=== PATIENT | male | born 1960 | race African-American/Black ===

== ENCOUNTER 2019-08-18 09:41 | Emergency (ER) | payer MEDICAID ==
[~2019-08-18] VITALS: Ht 175.3 cm; Wt 70.0 kg
[2019-08-18] MEDS ORDERED: KETOROLAC 60MG/2ML VIAL IM ONE (11:45)
[2019-08-18] MEDS ORDERED: TRAMADOL 50MG TABLET PO ONE (11:45)
[2019-08-18] MEDS ORDERED: CLONIDINE 0.2MG TABLET PO ONE (12:15)
[2019-08-18] MEDS ORDERED: HYDROCHLOROTHIAZIDE 25MG TABLET PO ONE (12:15)
[2019-08-18 14:35] VITALS: BP 147/111
== END 2019-08-18 14:47 | disposition home or self-care (01) ==
LOC: ER 09:41
DX: M54.12 Radiculopathy, cervical region (principal); M48.02 Spinal stenosis, cervical region; M19.90 Unspecified osteoarthritis, unspecified site; I10 Essential (primary) hypertension
CPT/HCPCS: 36415; 72040; 84484; 93005; 96372; 99284; J1885

== ENCOUNTER 2019-08-21 11:49 | Emergency (ER) | payer MEDICAID ==
[~2019-08-21] VITALS: Ht 175.3 cm; Wt 68.5 kg
[2019-08-21 12:14] VITALS: BP 162/107
== END 2019-08-21 16:29 | disposition left against medical advice (07) ==
LOC: ER 12:05
DX: Z53.21 Procedure and treatment not carried out due to patient leaving prior to being seen by health care provider (principal)

== ENCOUNTER 2019-08-22 07:38 | Emergency (ER) | payer MEDICAID ==
[~2019-08-22] VITALS: Ht 175.3 cm; Wt 68.0 kg
[2019-08-22 07:52] VITALS: BP 171/100
[2019-08-22] MEDS ORDERED: KETOROLAC 60MG/2ML VIAL IM ONE (08:30)
[2019-08-22] MEDS ORDERED: HYDROCODONE/ACETAMINOPHEN 5/325MG TABLET PO ONE (08:30)
== END 2019-08-22 09:01 | disposition home or self-care (01) ==
LOC: ER 07:58
DX: M47.892 Other spondylosis, cervical region (principal); I10 Essential (primary) hypertension
CPT/HCPCS: 99283

== ENCOUNTER 2020-04-02 12:02 | Emergency (ER) | payer MEDICAID ==
[~2020-04-02] VITALS: Ht 175.3 cm; Wt 68.0 kg
[2020-04-02] MEDS ORDERED: KETOROLAC 30MG/ML VIAL IM ONE (12:45)
[2020-04-02 13:22] VITALS: BP 114/79
== END 2020-04-02 13:22 | disposition home or self-care (01) ==
LOC: ER 12:47
DX: M25.562 Pain in left knee (principal); M25.462 Effusion, left knee; I10 Essential (primary) hypertension
CPT/HCPCS: 96372; 99283; J1885

== ENCOUNTER 2022-01-21 11:32 | Emergency (ER) | payer MEDICAID, OTHER ==
[~2022-01-21] VITALS: Ht 175.3 cm; Wt 72.0 kg
[2022-01-21 11:57] VITALS: BP 144/86
[2022-01-21] MEDS ORDERED: ACETAMINOPHEN 325MG TABLET PO ONE (12:15)
== END 2022-01-21 15:08 | disposition home or self-care (01) ==
LOC: ER 11:32
DX: U07.1 COVID-19 (principal)
CPT/HCPCS: 71045; 87426; 87804; 99284

== ENCOUNTER 2022-01-24 10:49 | Emergency (ER) | payer OTHER ==
[~2022-01-24] VITALS: Ht 175.3 cm; Wt 71.0 kg
[2022-01-24 10:56] VITALS: BP 131/93
[2022-01-24] MEDS ORDERED: IBUP-2029 MT (11:06)
[2022-01-24] MEDS ORDERED: LIDO1ADH5 TP (11:06)
[2022-01-24] MEDS ORDERED: METH-773 MT (11:06)
== END 2022-01-24 11:08 | disposition home or self-care (01) ==
LOC: ER 10:49
DX: M54.50 Low back pain, unspecified (principal); U07.1 COVID-19
CPT/HCPCS: 99283

== ENCOUNTER 2022-10-29 08:10 | Emergency (ER) | payer MEDICAID, OTHER ==
[~2022-10-29] VITALS: Ht 175.3 cm; Wt 79.0 kg
[~2022-10-29 08:10] MED LIST: IBUP-2029 MT; LIDO1ADH5 TP; METH-773 MT
[2022-10-29 08:16] VITALS: BP 130/75
[2022-10-29] MEDS ORDERED: KETOROLAC 60MG/2ML VIAL IM ONE (08:30)
[2022-10-29 08:53] LABS: CLARITY URINE CLEAR (CLEAR); COLOR URINE YELLOW (YELLOW); KETONES URINE NEGATIVE (NEGATIVE); LEUKOCYTE ESTERASE URINE NEGATIVE (NEGATIVE); NITRITE URINE NEGATIVE (NEGATIVE); OCCULT BLOOD URINE 1+ (NEGATIVE); PROTEIN URINE NEGATIVE (NEGATIVE); SPECIFIC GRAVITY URINE 1.022 (1.005-1.030)
[2022-10-29] MEDS ORDERED: IBUP-2028 MT (09:32)
== END 2022-10-29 08:36 | disposition home or self-care (01) ==
LOC: ER 08:10
DX: M54.50 Low back pain, unspecified (principal); M79.602 Pain in left arm; Z79.899 Other long term (current) drug therapy
CPT/HCPCS: 72100; 81003; 96372; 99284; J1885

== ENCOUNTER 2023-10-05 10:27 | Emergency (ER) | payer OTHER ==
[~2023-10-05] VITALS: Ht 182.9 cm; Wt 74.0 kg
[~2023-10-05 10:27] MED LIST changes: +IBUP-2028 MT
[2023-10-05 10:28] VITALS: BP 138/84; TEMP 98.1; O2SAT 98
[2023-10-05] MEDS ORDERED: SULF1TAB48 MT (11:24)
[2023-10-05 11:42] VITALS: PULSE 68; RESP 18
== END 2023-10-05 11:43 | disposition home or self-care (01) ==
LOC: ER 10:27
DX: H57.89 Other specified disorders of eye and adnexa (principal); Z79.899 Other long term (current) drug therapy
CPT/HCPCS: 99283

== ENCOUNTER 2023-11-27 11:47 | Emergency (ER) | payer OTHER ==
[~2023-11-27] VITALS: Ht 172.7 cm; Wt 81.0 kg
[~2023-11-27 11:47] MED LIST changes: +SULF1TAB48 MT
[2023-11-27 12:07] VITALS: O2SAT 100
[2023-11-27] MEDS: ACETAMINOPHEN 325MG TABLET PO ONE (13:19)
[2023-11-27] MEDS ORDERED: BO1 TP (14:57)
[2023-11-27 15:07] VITALS: BP 118/82; PULSE 76; RESP 18; TEMP 98.2
== END 2023-11-27 15:10 | disposition home or self-care (01) ==
LOC: ER 11:47
DX: S01.112A Laceration without foreign body of left eyelid and periocular area, initial encounter (principal); W01.0XXA Fall on same level from slipping, tripping and stumbling without subsequent striking against object, initial encounter; Y93.55 Activity, bike riding; Y92.89 Other specified places as the place of occurrence of the external cause; Y99.8 Other external cause status
CPT/HCPCS: 71046; 72170; 12011; 99284; Z7610